=== PATIENT | male | born 1960 | race Hispanic/Latino ===

== ENCOUNTER 2024-08-14 09:25 | Emergency (ER) | payer BC, OTHER ==
[~2024-08-14] VITALS: Ht 175.3 cm; Wt 88.0 kg
[2024-08-14] MEDS: TRIAMCINOLONE ACETONIDE 40 MG/ML 1ML VIAL IM ONE (10:09)
[2024-08-14] MEDS: ORPHENADRINE 60MG/2ML IM ONE (10:09)
[2024-08-14] MEDS ORDERED: METH16TA PO (12:26)
[2024-08-14 12:41] VITALS: BP 136/75; PULSE 87; RESP 18; TEMP 98; O2SAT 98
== END 2024-08-14 12:43 | disposition home or self-care (01) ==
LOC: EDH 09:25
DX: G57.01 Lesion of sciatic nerve, right lower limb (principal); E78.00 Pure hypercholesterolemia, unspecified; Z98.890 Other specified postprocedural states
CPT/HCPCS: 99285; 76882; 96372 ×2; J3301; J2360